=== PATIENT | female | born 1960 | race Caucasian/White ===

== ENCOUNTER → 2021-01-11 10:07 | Outpatient (BNVA) | payer OTHER, SELFPAY | PROVIDERS: PCP Internal Medicine; Visit Provider Nurse Practitioner Family | DX: M47.816 Spondylosis without myelopathy or radiculopathy, lumbar region (principal); M53.3 Sacrococcygeal disorders, not elsewhere classified; G57.91 Unspecified mononeuropathy of right lower limb | CPT/HCPCS: 99202 ==

== ENCOUNTER 2021-02-08 09:51 | Outpatient (REF) | payer OTHER, SELFPAY ==
--- NOTE | ~2021-02-08 | XR_ITS ---
EXAMINATION: XR LUMBAR SPINE XR PELVIS CLINICAL INFORMATION: Spondylosis. Sacrococcygeal disorders. COMPARISON: None TECHNIQUE: AP, lateral, and coned-down views of the lumbar spine. AP view of the pelvis. FINDINGS: LUMBAR SPINE: Normal vertebral body alignment. The lumbar lordosis is maintained. No acute fracture or subluxation. No loss of vertebral body or intervertebral disc height. No lytic or blastic osseous lesion. No abnormal soft tissue calcification. PELVIS: No acute fracture or dislocation. Mild left hip joint space narrowing with tiny marginal osteophytes. No osseous erosion. No abnormal soft tissue calcification. XR/XR lumbar spine 2-3V IMPRESSION: Lumbar spine: Unremarkable examination. Pelvis: Mild left hip osteoarthritis.
--- NOTE | ~2021-02-08 | XR_ITS ---
EXAMINATION: XR LUMBAR SPINE XR PELVIS CLINICAL INFORMATION: Spondylosis. Sacrococcygeal disorders. COMPARISON: None TECHNIQUE: AP, lateral, and coned-down views of the lumbar spine. AP view of the pelvis. FINDINGS: LUMBAR SPINE: Normal vertebral body alignment. The lumbar lordosis is maintained. No acute fracture or subluxation. No loss of vertebral body or intervertebral disc height. No lytic or blastic osseous lesion. No abnormal soft tissue calcification. PELVIS: No acute fracture or dislocation. Mild left hip joint space narrowing with tiny marginal osteophytes. No osseous erosion. No abnormal soft tissue calcification. XR/XR pelvis 1-2V IMPRESSION: Lumbar spine: Unremarkable examination. Pelvis: Mild left hip osteoarthritis.
== END 2021-02-08 09:52 | disposition home or self-care (01) ==
LOC: HO.XRAY 09:51
PROVIDERS: PCP Internal Medicine; Visit Provider Nurse Practitioner Family
DX: M47.816 Spondylosis without myelopathy or radiculopathy, lumbar region (principal); M35.3 Polymyalgia rheumatica; G57.91 Unspecified mononeuropathy of right lower limb
CPT/HCPCS: 72100; 72170; 99212

== ENCOUNTER 2025-01-05 13:15 | Outpatient (AMB) | payer MEDICARE, MEDICAID, SELFPAY ==
--- NOTE | 2025-01-05 13:21 | A.OFFVIS_ITS ---
Intake Visit Reasons: 6 Months Accompanied by: Friend Allergies No Known Allergies Allergy (Verified 01/05/25 13:24) Medication List - Last Reconciled 01/05/25 by Traci Boucher CNP citalopram 20 mg PO DAILY fluticasone furoate-vilanterol 200-25 mcg/dose (Breo Ellipta) 1 inh inhalation DAILY gabapentin 300 mg PO TID loratadine 10 mg PO DAILY montelukast 10 mg PO QPM naproxen 500 mg PO BID PRN omeprazole 40 mg PO DAILY propranolol 10 mg PO BID trazodone 50 mg PO BEDTIME triamcinolone acetonide 0.1% topical BID PRN HPI Comments Details: 64-year-old woman with suspicion of psychosomatis, and tremor. She was doing okay. Tremor was controlled with propranolol. No medication side effects. No functional impairment. No falls. [facility] Medical History (Updated 01/05/25 @ 13:23 by Traci Boucher CNP) Psychosomatic disease Hip arthritis Osteoarthritis Anxiety disorder Review of Systems Const Denies chills, Denies daytime sleepiness, Denies difficulty sleeping, Denies fatigue, Denies fever(s), Denies frequent falls, Denies headache(s), Denies increased appetite, Denies poor appetite, Denies snoring, Denies weakness, Denies weight gain and Denies weight loss Eyes Denies loss of vision ENT Denies vertigo, Denies dizziness and Denies headache(s) Card Denies chest pain at rest, Denies chest pain with activity, Denies syncope, Denies leg edema and Denies palpitations Resp Denies snoring GI Denies constipation, Denies heartburn, Denies diarrhea and Denies nausea Denies urinary frequency, Denies urinary incontinence and Denies urinary urgency Musc Denies abnormal gait, Denies numbness and Denies tingling Skin/Breast Denies dry skin and Denies rash Neuro Denies abnormal gait, Denies vertigo, Denies dizziness, Denies syncope, Denies frequent falls, Denies headache(s), Denies lack of coordination, Denies loss of vision, Denies memory loss, Denies numbness, Denies restless legs, Denies seizure-like activity, Denies tingling, Denies paresthesias, Reports tremor(s) and Denies weakness Psych Denies anxiety, Denies depression, Denies auditory hallucinations, Denies memory loss, Denies visual hallucinations and Denies suicidal ideation Endo Denies fatigue and Denies palpitations Physical Exam Const Other: General Appearance:? normal, in no acute distress. Skin:? no rashes, no significant birthmarks. Heart:? S1, S2 normal, no murmurs. Lungs:? clear anteriorly and posteriorly. Extremities:? no edema. Psych:? alert, oriented, cognitive function intact, cooperative with exam. Neuro Other: Mental Status:?Normal attention, orientation, memory and affect.? Cranial Nerves:?Pupils are equal, round and reactive to light. External occular muscles are intact. Visual bartholomew are full. Face is symmetrical. Facial sensations are normal. Tongue is midline. Palate elevates symmetrically. Shoulder shrugging is normal. Hearing to bedside conversation is normal. Sensory Exam:?....? Coordination:?No ataxia,?no titubation.? Gait Exam: Within normal limits. Cerebellar Signs:?[id number] is okay. Extrapyramidal System:?No tremor, rigidity with normal facial expressions.? Pronator Drift:?Not present.? Involuntary Movements:?Mild bilateral hand postural tremor. Speech:?Normal.? Results Reviewed Results Reviewed: NCV/EMG LE Right mid lumbar radiculopathy. 08/05/21 XR hip at [facility] in Feb 2021: mild left hip OA XR LS spine at [facility] in Feb 2021: OK Assessment & Plan Assessment & Plan (1) Tremor: Code(s): R25.1 - Tremor, unspecified Category: Medical Plan: Continue propranolol 10mg 1 tablet twice a day. Medications: New propranolol 10 mg PO BID 180 tabs 1RF 90 days Coding Level of Care Code Est Pt Level 4 (47569) Diagnoses Tremor R25.1
--- OUTSIDE RECORDS SUMMARY | 2025-01-05 13:50 | XMS_ITS | Encounter Summary ---
Author Organization [facility] Address [address] [place] [address] Care Team Providers Care Stemhole Borer And Topper Name Role Phone Armen Ingram DO Primary Care Provider [phone] Encounter Details Date Type Department Care Team (Late st Contact Info) Description 07/18/2024 Lab Requisition [facility] - Main Lab [address] [facility] [place] [address] Kat Simmons NP [address] [facility] [address] [place] [phone] Acute pharyngitis, unspecified Social History Tobacco Use Types Packs/Day Years Used Date Smoking Tobacco: Never Smokeless Tobacco: Never Alcohol Use Standard Drinks/Week Comments No 0 (1 standard drink = 0.6 oz pur e alcohol) Comments Unknown Sex and Gender Information Value Date Recorded Sex Assigned at Female 05/13/2024 9:41 AM EST Legal Sex Female 2:44 PM EST Gender Identity Female 05/13/2024 9:41 AM EST Sexual Orientation Straight 05/13/2024 9: 41 AM EST documented as of this encounter Plan of Treatment Not on file documented as of this encounter Procedures Procedure Name Priority Date/Time Associated Diagnosis Comments CULTURE THROAT Routine 07/18/2024 2:11 PM EDT Acute pharyngitis, unspecified documented in this encounter Results * Culture throat (07/18/2024 2:11 PM EDT) Culture, Throat No pathogens isolated. 07/20/2024 11:11 AM EDT [facility] Swab Structure of anterior portion of neck / Unknown 07/18/2024 2:11 PM EDT 07/18/2024 8:18 PM EDT us Stephens Simmons GLOBAL CLIMATE CHANGE RESEARCHER LAB MICROBIOLOGY - GENERAL ORDER PAT Final Result [facility] [address] [place] [address], documented in this encounter Visit Diagnoses Diagnosis Acute pharyngitis, unspecified documented in this encounter Care Teams Stemhole Borer And Topper Relationship Specialty Start Date End Date Armen Ingram DO [address] [place] [phone] PCP - General Internal Medicine 03/21/24 documented as of this encounter
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
== END 2025-01-05 13:30 | disposition home or self-care (01) ==
LOC: HO.HSM 13:16
PROVIDERS: PCP Internal Medicine; Referring Provider Internal Medicine; Visit Provider Registered Nurse
DX: R25.1 Tremor, unspecified (principal)
CPT/HCPCS: 99214

== ENCOUNTER → 2025-01-05 13:15 | Outpatient (BNVA) | payer MEDICARE, MEDICAID, SELFPAY | PROVIDERS: PCP Internal Medicine; Referring Provider Internal Medicine; Visit Provider Registered Nurse | DX: R25.1 Tremor, unspecified (principal); Z79.899 Other long term (current) drug therapy | CPT/HCPCS: 99212 ==